=== PATIENT | female | born 1985 | race Caucasian/White ===

== ENCOUNTER 2016-05-17 22:11 | Day surgery (SDC) | payer BC ==
[~2016-05-17] VITALS: Ht 165.1 cm; Wt 71.4 kg
[~2016-05-17 22:11] MED LIST: ADVIL200 M1 PO; Feosol PO; MONODOX100 MG PO; Motrin PO; PERCOCET 5/31 TABLET PO; PREFERA-OB P1 TABLET PO; Percocet 5/325,Endoc PO
[2016-05-17 22:43] LABS: HEMATOCRIT 34.6 % (36.0-46.0); MCH 30.7 PG (29.0-34.0); MCHC 34.1 G/DL (30.0-36.0); MCV 90.1 FL (83-99); MEAN PLAT.VOLUME 9.3 uM^3 (9.5-12.4); PLATELET COUNT 258 K/uL (156-360); RBC DIS.WIDTH-CV 11.7 % (11.8-14.6); RBC DIS.WIDTH-SD 37.3 % (39-53); RED BLOOD COUNT 3.84 M/uL (3.80-5.20); WHITE BLOOD COUNT 9.6 K/uL (4.1-10.2)
[2016-05-17 22:52] LABS: CHLORIDE 105 mEq/L (99-109); POTASSIUM 3.7 mEq/L (3.7-5.4); SODIUM 139 mEq/L (136-147)
[2016-05-17 22:54] LABS: GLUCOSE 88 mg/dL (70-99); PROTHROMBIN TIME 10.5 (9.2-11.2); PTT 29.4 (25-32)
[2016-05-17 22:56] LABS: ANION GAP 8 MEQ/L (2-14); TOTAL BILIRUBIN 0.4 mg/dL (0.0-1.0)
[2016-05-17 22:58] LABS: ALKALINE PHOSPHATASE 45 IU/L (3-129); GFR ESTIMATE (CALCULATED) > 59 mL/min/
[2016-05-17 22:59] LABS: UREA NITROGEN (BUN) 10 mg/dL (9-23)
[2016-05-17 23:07] LABS: QUANTITATIVE HCG 207.3 MIU/ML
[2016-05-18] MEDS ORDERED: PERCOCET 5/31 TABLET PO (00:22)
[2016-05-18] MEDS ORDERED: ADVIL200 M1 PO (00:22)
[2016-05-18 01:34] VITALS: BP 95/51
== END 2016-05-18 02:50 | disposition home or self-care (01) ==
LOC: EME 22:11 → SDC 22:47 → EME 22:47 → 2SOUTH 05-18 → 2EAST 05-18 01:43
PROVIDERS: Emergency Medicine
PROC: 0UB54ZZ Excision of Right Fallopian Tube, Percutaneous Endoscopic Approach (ICD-10-PCS; principal; 2016-05-18)
DX: O00.90 Unspecified ectopic pregnancy without intrauterine pregnancy (principal)
CPT/HCPCS: 80053; 81003; 84702; 85027; 85610; 85730; 86850; 86870; 86900; 86901; 86905; 88305; 99281; 99285; G0378; J0690; J1170; J1885; J2175; J2405; J2710; J2765; J3010; J7120

== ENCOUNTER 2017-06-19 05:13 | Day surgery (SDC) | payer BC ==
[~2017-06-19] VITALS: Ht 165.1 cm; Wt 72.6 kg
[~2017-06-19 05:13] MED LIST changes: +ADVIL200 MG PO; +PRENATAL TABLE1 EAC3 PO; +XANAX0.5 MG PO
[2017-06-19 05:53] VITALS: BP 101/54
[2017-06-19] MEDS ORDERED: ENDOCET 5-3251 EACH PO (09:04)
[2017-06-19 11:06] VITALS: BP 102/60
[2017-06-19 12:00] VITALS: BP 81/47
[2017-06-19 13:16] VITALS: BP 83/46
[2017-06-19 13:50] LABS: HEMATOCRIT 34.4 % (36.0-46.0); HEMOGLOBIN 11.6 G/DL (11.9-15.5); MCH 30.8 PG (29.0-34.0); MCHC 33.7 G/DL (30.0-36.0); MCV 91.2 FL (83-99); PLATELET COUNT 209 K/uL (156-360); RBC DIS.WIDTH-CV 11.9 % (11.8-14.6); RBC DIS.WIDTH-SD 39.6 % (39-53); RED BLOOD COUNT 3.77 M/uL (3.80-5.20); WHITE BLOOD COUNT 12.4 K/uL (4.1-10.2)
[2017-06-19 14:09] VITALS: BP 102/54
[2017-06-19 14:39] VITALS: BP 102/61
== END 2017-06-19 14:55 | disposition home or self-care (01) ==
LOC: SDC 05:13
PROVIDERS: Obstetrics & Gynecology Obstetrics
DX: O00.102 Left tubal pregnancy without intrauterine pregnancy (principal); N73.6 Female pelvic peritoneal adhesions (postinfective); F17.200 Nicotine dependence, unspecified, uncomplicated; Z80.3 Family history of malignant neoplasm of breast; Z88.2 Allergy status to sulfonamides
CPT/HCPCS: 85027; 88305; J0131; J0330; J1100; J1170; J1885; J2250; J2405; J2710; J2765; J3010; S0020